=== PATIENT | male | born 1950 | race Caucasian/White ===

== ENCOUNTER 2018-06-21 00:18 | Emergency (ER) | payer MEDICARE ==
[~2018-06-21] VITALS: Ht 172.7 cm; Wt 72.7 kg
[2018-06-21 00:26] VITALS: Ht 172.7 cm; Wt 72.7 kg
[2018-06-21] MEDS ORDERED: HYDROCODONE-APA1 TAB (00:28)
[2018-06-21 01:05] LABS: BASOPHILS 0.3 % (0-2); EOSINOPHILS 0.9 % (0-7); HEMATOCRIT 42.7 % (42.0-54.0); HEMOGLOBIN 14.9 g/dL (13.5-17.5); IMMATURE GRANULOCYTES 0.2 % (0-5); LYMPHOCYTES 11.6 % (15-50); MCH 29.4 pg (26.0-34.0); MCHC 34.9 g/dL (31.0-37.0); MCV 84.4 fL (80.0-100.0); MEAN PLATELET VOLUME 8.6 fL (7.4-10.4); MONOCYTES 4.1 % (2-11); NEUTROPHILS 82.9 % (40-80); PLATELET COUNT 168 10x3/uL (130-400); RBC 5.06 10x6/uL (4.20-6.10); RDW 13.1 % (11.5-14.5)
[2018-06-21 01:32] LABS: ALBUMIN 4.1 g/dL (3.4-5.0); ALKALINE PHOSPHATASE 62 U/L (46-116); ALT (SGPT) 16 U/L (10-68); BILIRUBIN - TOTAL 1.04 mg/dL (0.2-1.3); CALC OSMOLALITY 275 mosm/kg (275-300); CALCIUM 9.2 mg/dL (8.5-10.1); CARBON DIOXIDE 29.5 mmol/L (21.0-32.0); CHLORIDE - SERUM 102 mmol/L (98-107); CREATININE - SERUM 1.1 mg/dL (0.6-1.3); GLUCOSE 130 mg/dL (74-106); POTASSIUM - SERUM 3.9 mmol/L (3.5-5.1); PROTEIN - SERUM 7.3 g/dL (6.4-8.2); SODIUM 136 mmol/L (136-145); UREA NITROGEN 17 mg/dL (7-18); eGFR NON AFRICAN AMERICAN 71 mL/min (90-120)
[2018-06-21 01:35] LABS: AMYLASE - SERUM 54 U/L (25-115); LIPASE 235 U/L (73-393); TROPONIN-I < 0.017 ng/mL (0.000-0.060)
[2018-06-21 02:18] LABS: APPEARANCE HAZY (CLEAR); BILIRUBIN NEGATIVE (NEGATIVE); COLOR AMBER (YELLOW); GLUCOSE NEGATIVE (NEGATIVE); KETONE NEGATIVE (NEGATIVE); NITRITE NEGATIVE (NEGATIVE); PROTEIN NEGATIVE (NEGATIVE); SPECIFIC GRAVITY 1.025 (1.005-1.020)
[2018-06-21 02:19] LABS: BACTERIA FEW /hpf (NONE SEEN); EPITHELIAL CELLS 0-5 /hpf (0-5); MUCUS >1+ /lpf (NONE SEEN); RED CELLS - URINE 0-5 /hpf (0-5)
[2018-06-21 04:33] VITALS: BP 168/89
== END 2018-06-21 02:55 | disposition home or self-care (01) ==
LOC: D.ER 00:18
PROVIDERS: Family Medicine
DX: K59.00 Constipation, unspecified (principal); Z86.73 Personal history of transient ischemic attack (TIA), and cerebral infarction without residual deficits; F17.200 Nicotine dependence, unspecified, uncomplicated

== ENCOUNTER 2019-06-19 10:23 | Emergency (ER) | payer MEDICARE ==
[~2019-06-19] VITALS: Ht 172.7 cm; Wt 70.5 kg
[~2019-06-19 10:23] MED LIST: HYDROCODONE-APA1 TAB
[2019-06-19 10:26] VITALS: BP 132/66; Ht 172.7 cm; Wt 70.5 kg
== END 2019-06-19 17:17 | disposition home or self-care (01) ==
LOC: D.ER 10:23
DX: K59.00 Constipation, unspecified (principal); Z86.73 Personal history of transient ischemic attack (TIA), and cerebral infarction without residual deficits

== ENCOUNTER → 2019-06-19 10:56 | Outpatient (CLI) | payer MEDICARE ==
[2019-06-19 10:26] VITALS: BMI 23.6
== END | disposition home or self-care (01) ==
LOC: D.CT 10:56
PROVIDERS: ATTEND Orthopaedic Surgery
DX: I65.23 Occlusion and stenosis of bilateral carotid arteries (principal)

== ENCOUNTER → 2019-07-03 08:13 | Outpatient (CLI) | payer MEDICARE ==
[2019-06-19 10:26] VITALS: BMI 23.6
== END | disposition home or self-care (01) ==
LOC: D.CT 08:13
PROVIDERS: ATTEND Internal Medicine Cardiovascular Disease
DX: I65.23 Occlusion and stenosis of bilateral carotid arteries (principal)

== ENCOUNTER → 2019-07-11 12:59 | Outpatient (CLI) | payer MEDICARE ==
[2019-06-19 10:26] VITALS: BMI 23.6
== END | disposition home or self-care (01) ==
LOC: D.CN 12:59
PROVIDERS: ATTEND Thoracic Surgery (Cardiothoracic Vascular Surgery)
DX: I49.9 Cardiac arrhythmia, unspecified (principal)